=== PATIENT | male | born 1985 | race Caucasian/White ===

== ENCOUNTER 2017-01-11 04:15 | Emergency (ER) | payer SELFPAY ==
[~2017-01-11] VITALS: Ht 167.6 cm; Wt 73.8 kg
[~2017-01-11 04:15] MED LIST: FLEXERIL OR; LORTAB 7.5 OR; NAPROSYN375 MG PO; NAPROSYN500 MG OR; NO MEDS; PENICILLN VK250 MG OR; PERCOCET 5/325M1 TAB PO; ULTRAM50 M1 PO
[2017-01-11] MEDS ORDERED: BACTRIM DS1 TAB PO ×2 (04:45→17:03)
[2017-01-11 05:10] VITALS: BP 122/79
[2017-01-11] MEDS ORDERED: CEPHALEXIN500 MG PO (17:03)
[2017-01-11] MEDS ORDERED: LORTAB 10-325 M1 TAB PO (17:03)
== END 2017-01-11 05:10 | disposition home or self-care (01) | DRG 603 ==
LOC: ED 04:15
PROC: 0H9FXZZ Drainage of Right Hand Skin, External Approach (ICD-10-PCS; principal; 2017-01-11)
DX: L02.511 Cutaneous abscess of right hand (principal); B95.61 Methicillin susceptible Staphylococcus aureus infection as the cause of diseases classified elsewhere

== ENCOUNTER 2017-01-11 16:17 | Emergency (ER) | payer SELFPAY ==
[~2017-01-11] VITALS: Ht 167.6 cm; Wt 75.0 kg
[~2017-01-11 16:17] MED LIST changes: +BACTRIM DS1 TAB PO
[2017-01-11] MEDS ORDERED: CEPHALEXIN500 MG PO (17:03)
[2017-01-11] MEDS ORDERED: BACTRIM DS1 TAB PO (17:03)
[2017-01-11] MEDS ORDERED: LORTAB 10-325 M1 TAB PO (17:03)
[2017-01-11 17:06] VITALS: BP 122/60
== END 2017-01-11 17:14 | disposition home or self-care (01) | DRG 603 ==
LOC: ED 16:17
PROC: 0H9FXZZ Drainage of Right Hand Skin, External Approach (ICD-10-PCS; principal; 2017-01-11)
DX: L02.511 Cutaneous abscess of right hand (principal); B95.61 Methicillin susceptible Staphylococcus aureus infection as the cause of diseases classified elsewhere

== ENCOUNTER 2018-07-05 16:10 | Emergency (ER) | payer SELFPAY ==
[~2018-07-05] VITALS: Ht 167.6 cm; Wt 79.5 kg
[~2018-07-05 16:10] MED LIST changes: +CEPHALEXIN500 MG PO; +LORTAB 10-325 M1 TAB PO
[2018-07-05] MEDS ORDERED: OFLOXACIN0.3 % OU ×2 (16:48→16:50)
[2018-07-05 16:54] VITALS: BP 141/93
== END 2018-07-05 17:02 | disposition home or self-care (01) | DRG 125 ==
LOC: ED 16:10
DX: H10.9 Unspecified conjunctivitis (principal); F17.210 Nicotine dependence, cigarettes, uncomplicated

== ENCOUNTER 2019-06-22 | Emergency (ER) | payer SELFPAY ==
[~2019-06-22] MED LIST changes: +OFLOXACIN0.3 % OU
[2019-06-22 01:24] LABS: HEMATOCRIT 42.8 % (39.0-50.0); HEMOGLOBIN 13.9 g/dl (14.0-18.0); IMMATURE GRANULOCYTES 0.4 % (0.0-5.0); MEAN CELL VOLUME 88.6 fL CALC (80.0-100.0); MEAN CORPUSCULAR HGB 28.8 pG CALC (26.0-32.0); MEAN CORPUSCULAR HGB CONC 32.5 g/L CALC (32.0-36.0); NEUT# 12.05 thou/uL (1.82-7.42); RED BLOOD COUNT 4.83 mill/uL (4.70-6.10); RED CELL DISTRI WIDTH 11.9 % (11.5-15.5)
[2019-06-22 01:38] LABS: ALBUMIN 4.3 g/dL (3.2-5.0); ALKALINE PHOSPHATASE 116 u/l (38-126); ANION GAP 14 (6-22 (CALC)); BUN 16 mg/dL (9-20); BUN/CREATININE RATIO 12 (12-20 (CALC)); CARBON DIOXIDE 26 mmol/l (22-30); CHLORIDE 103 mmol/l (95-108); CREATININE 1.3 mg/dL (0.7-1.3); GFR > 60 ML/MIN (>=60 (CALC)); GFR FOR AFR.AMER. > 60 ML/MIN (>=60 (CALC)); POTASSIUM 3.9 mmol/l (3.5-5.1); SGOT/AST 23 u/l (17-59); SODIUM 139 mmol/l (137-146); TOTAL PROTEIN 7.6 g/dL (6.3-8.2)
[2019-06-22 01:41] LABS: BILIRUBIN, TOTAL 0.5 mg/dL (0.0-1.4)
--- NOTE | 2019-06-25 14:33 | NUR ---
Pt just returned phone call, aware of new rx at [facility] for MRSA coverage. See ER physician micro report note.
== END 2019-06-22 03:41 | disposition left against medical advice (07) | DRG 558 ==
PROVIDERS: Emergency Medicine
DX: M65.841 Other synovitis and tenosynovitis, right hand (principal); B95.62 Methicillin resistant Staphylococcus aureus infection as the cause of diseases classified elsewhere; D72.829 Elevated white blood cell count, unspecified; Z91.19 Patient's noncompliance with other medical treatment and regimen

== ENCOUNTER 2020-03-01 01:16 | Emergency (ER) | payer SELFPAY ==
[~2020-03-01] VITALS: Ht 167.6 cm; Wt 81.8 kg
[2020-03-01] MEDS ORDERED: AMOXICILLIN500 MG PO (02:15)
[2020-03-01 02:30] VITALS: BP 147/82
== END 2020-03-01 02:30 | disposition home or self-care (01) | DRG 914 ==
LOC: ED 01:16
PROC: 0HQGXZZ Repair Left Hand Skin, External Approach (ICD-10-PCS; principal; 2020-03-01)
DX: S61.241A Puncture wound with foreign body of left index finger without damage to nail, initial encounter (principal); F17.210 Nicotine dependence, cigarettes, uncomplicated; W26.9XXA Contact with unspecified sharp object(s), initial encounter; W45.8XXA Other foreign body or object entering through skin, initial encounter

== ENCOUNTER 2020-08-01 12:47 | Emergency (ER) | payer SELFPAY ==
[~2020-08-01] VITALS: Ht 167.6 cm; Wt 95.0 kg
[~2020-08-01 12:47] MED LIST changes: +AMOXICILLIN500 MG PO
[2020-08-01 14:57] VITALS: BP 131/68
== END 2020-08-01 14:56 | disposition home or self-care (01) | DRG 866 ==
LOC: ED 12:47
DX: B34.9 Viral infection, unspecified (principal); R43.8 Other disturbances of smell and taste; F17.200 Nicotine dependence, unspecified, uncomplicated; Z20.822 Contact with and (suspected) exposure to COVID-19

== ENCOUNTER 2022-01-25 16:09 | Emergency (ER) | payer SELFPAY ==
[~2022-01-25] VITALS: Ht 167.6 cm; Wt 85.9 kg
[2022-01-25 16:53] VITALS: BP 132/92
[2022-01-25 17:10] LABS: URINE BILIRUBIN - DIPSTICK NEGATIVE (NEGATIVE); URINE BLOOD DIPSTICK LARGE (NEGATIVE); URINE GLUCOSE - DIPSTICK NEGATIVE (NEGATIVE); URINE KETONE NEGATIVE (NEGATIVE); URINE PROTEIN - DIPSTICK NEGATIVE (NEG-TRACE); URINE UROBILINOGEN - DIPSTICK 0.2 E.U./dL (0.2)
[2022-01-25 17:12] LABS: URINE COLOR PINK; URINE LEUK ESTERASE MODERATE (NEGATIVE); URINE NITRITE - DIPSTICK NEGATIVE (Negative)
[2022-01-25 17:15] LABS: URINE RBC >100 RBC/hpf (0-5); URINE SQUAMOUS EPITHELIAL CELL FEW EPI/hpf (0-FEW)
[2022-01-25] MEDS ORDERED: LEVOFLOXACIN500MG PO (18:45)
[2022-01-25] MEDS ORDERED: NAPROXEN500 MG PO (18:45)
[2022-01-25 19:36] VITALS: BP 131/95
== END 2022-01-25 19:46 | disposition home or self-care (01) | DRG 690 ==
LOC: ED 16:09
PROVIDERS: Nurse Practitioner
DX: N39.0 Urinary tract infection, site not specified (principal); N50.3 Cyst of epididymis; F17.210 Nicotine dependence, cigarettes, uncomplicated